=== PATIENT | male | born 1960 | race Caucasian/White ===

== ENCOUNTER → 2016-07-31 | Outpatient (CLI) | payer OTHER | LOC: BRMIMAGING 10:10 | PROVIDERS: ATTEND Internal Medicine Hematology & Oncology | DX: Z12.89 Encounter for screening for malignant neoplasm of other sites (principal); Z85.528 Personal history of other malignant neoplasm of kidney; Z90.5 Acquired absence of kidney | CPT/HCPCS: 76770-PO ==

== ENCOUNTER → 2017-08-02 | Outpatient (CLI) | payer OTHER | LOC: FIMAGING 09:06 | PROVIDERS: ATTEND Internal Medicine Hematology & Oncology | DX: Z15.09 Genetic susceptibility to other malignant neoplasm (principal); N28.89 Other specified disorders of kidney and ureter; Z80.49 Family history of malignant neoplasm of other genital organs ==

== ENCOUNTER → 2018-07-18 | Outpatient (CLI) | payer OTHER | LOC: BRMIMAGING 07:44 | PROVIDERS: ATTEND Internal Medicine Hematology & Oncology | DX: Z15.09 Genetic susceptibility to other malignant neoplasm (principal); Z85.528 Personal history of other malignant neoplasm of kidney | CPT/HCPCS: 76770-PO ==